=== PATIENT | female | born 1960 | race Caucasian/White ===

== ENCOUNTER 2024-04-13 06:11 | Day surgery (SDC) | payer BC, SELFPAY ==
[2024-04-08 08:41] VITALS: BMI 33.0
[2024-04-08 10:27] LABS: Hematocrit 41.7 % (37.0-47.0); Hemoglobin 14.3 g/dL (12.0-16.0); Mean Corp Hgb Conc. 34.3 g/dL (33.0-37.0); Mean Corpuscular Hgb 28.7 pg (27.0-31.0); Mean Corpuscular Volume 83.6 fL (81.0-99.0); Mean Platelet Volume 10.9 fL (7.4-10.4); Platelet Count 195 10^3/uL (130-400); Red Blood Cell Count 4.99 10^6/uL (4.20-5.40); Red Cell Dist. Width 13.4 % (11.5-14.5); White Blood Cell Count 7.5 10^3/uL (4.8-10.8)
[2024-04-08 10:59] LABS: Blood Urea Nitrogen 14 mg/dl (7-17); Calcium 9.8 mg/dl (8.4-10.2); Carbon Dioxide 23 mmol/L (22-30); Chloride 102 mmol/L (98-107); Estimated Creatinine Clearance 109 ml/min; Glucose 103 mg/dl (70-99); Potassium 4.2 mmol/L (3.5-5.1); Sodium 140 mmol/L (135-145); eGFR > 60.00
[2024-04-13] VITALS (17 sets, daily range): BP systolic 107–146; BP diastolic 60–79; BMI 33.0
[2024-04-13] MEDS: NORMOSOL-R/PLASMALYTE-A 1000 IV (06:31)
[2024-04-13] MEDS: HEPARIN 5000 UNITS SC (06:32)
[2024-04-13] MEDS: Pyridium 200 MG PO (06:32)
[2024-04-13] MEDS: TYLENOL 650 MG PO (16:39)
== END 2024-04-13 18:07 | disposition home or self-care (01) ==
LOC: SDS 06:11
PROVIDERS: ATTENDING PHYSICIAN Obstetrics & Gynecology; FAMILY PHYSICIAN Family Medicine
DX: N81.2 Incomplete uterovaginal prolapse (principal); N95.2 Postmenopausal atrophic vaginitis; N39.3 Stress incontinence (female) (male)
CPT/HCPCS: 57425; 58542; 57250; 57288; 88305; 36415; 80048; 85027; 86850; 86900; 86901; 93005; C1763; C1771

== ENCOUNTER → 2024-07-16 15:52 | Outpatient (REF) | payer BC, SELFPAY | LOC: WDC 15:52 | PROVIDERS: ATTENDING PHYSICIAN Nurse Practitioner Adult Health; FAMILY PHYSICIAN Family Medicine | DX: Z12.31 Encounter for screening mammogram for malignant neoplasm of breast (principal) | CPT/HCPCS: 77063; 77067 ==